=== PATIENT | male | born 1990 | race Caucasian/White ===

== ENCOUNTER 2019-11-03 13:36 | Emergency (ER) | payer OTHER ==
[2019-11-03 13:40] VITALS: BP 127/85; PULSE 61; RESP 20; TEMP 97.7
--- NOTE | 2019-11-03 14:09 | ED ---
ENT HPI - General Chief complaint: ENT Stated complaint: ear pain Time Seen by Provider: 11/03/19 13:43 Source: patient Mode of arrival: ambulatory Limitations: no limitations - History of Present Illness Initial comments: Patient is a 29-year-old male presenting to emergency Department with a chief complaint of ear discomfort. Patient states symptoms are ongoing for about 2 weeks. Does report occasional popping sensation and fullness in the right ear. States he does have occasional muscle is as well like he is in an airplane. Denies any fever or chills. Denies any significant pain in the region. Denies any discharge from the right ear. Denies taking medication to alleviate the symptoms. - Related Data Allergies Allergy/AdvReac Type Severity Reaction Status Date / Time No Known Allergies Allergy Verified 11/03/19 13:40 Review of Systems ROS Statement: Those systems with pertinent positive or pertinent negative responses have been documented in the HPI. ROS Other: All systems not noted in ROS Statement are negative. Past Medical History Past Medical History: No Reported History Additional Past Medical History / Comment(s): Hydrocephalus History of Any Multi-Drug Resistant Organisms: None Reported Past Surgical History: No Surgical Hx Reported Past Psychological History: No Psychological Hx Reported Smoking Status: Current every day smoker Past Alcohol Use History: Occasional Past Drug Use History: Marijuana General Exam Limitations: no limitations General appearance: alert, in no apparent distress Head exam: Present: atraumatic, normocephalic, normal inspection Eye exam: Present: normal appearance, PERRL Pupils: Present: normal accommodation ENT exam: Present: normal exam, normal oropharynx, mucous membranes moist, TM's normal bilaterally (Fluid behind tympanic membrane on the right ear. No TM erythema or bulging. No puncture of the tympanic membrane.), normal external ear exam (No pain with traction of the ear. External auditory canal clear bilaterally.) Neck exam: Present: normal inspection, full ROM Respiratory exam: Present: normal lung sounds bilaterally Cardiovascular Exam: Present: regular rate, normal rhythm, normal heart sounds Extremities exam: Present: normal inspection, full ROM Back exam: Present: normal inspection, full ROM Neurological exam: Present: alert, oriented X3 Psychiatric exam: Present: normal affect, normal mood Skin exam: Present: warm, dry, intact, normal color Course Vital Signs 11/03/19 13:38 Temperature 97.7 F Pulse Rate 61 Respiratory 20 Rate Blood Pressure 127/85 O2 Sat by Pulse 98 Oximetry Medical Decision Making - Medical Decision Making patient is a 29-year-old male presenting to emergency Department with chief complaint of right ear discomfort. Physical exam patient does not appear to have otitis media or otitis externa. Fluid behind the ear is noted which I suspect is causing the sensation of ear fullness and occasional muscle sounds with popping sound. Patient will be discharged with Zyrtec. Patient advised to follow with an ENT specialist if symptoms do not improve . Return parameters were thoroughly discussed the patient was in a standing agreeable. Case discussed with physician. Disposition Clinical Impression: Discomfort of right ear Disposition: HOME SELF-CARE Condition: Stable Instructions (If sedation given, give patient instructions): Earache (ED) Additional Instructions: Follow-up with an ENT specialist if symptoms not improved. Take prescribed medication as directed. Return to emergency department if symptoms worsen. Is patient prescribed a controlled substance at d/c from ED?: No Referrals: None,Stated [Primary Care Provider] - 1-2 days Jim Rose MD [STAFF PHYSICIAN] - 1-2 days Time of Disposition: 14:09
== END 2019-11-03 14:18 | disposition home or self-care (01) ==
LOC: EC 13:36
DX: H93.8X1 Other specified disorders of right ear (principal); F17.200 Nicotine dependence, unspecified, uncomplicated
CPT/HCPCS: 99282